=== PATIENT | female | born 1935 | race Caucasian/White ===

== ENCOUNTER → 2020-12-31 | Day surgery (SDC) | payer MEDICARE, BC ==
[~2020-12-31] MED LIST: CELEBREX 200MG200 MG PO; CENTRUM SILVER1 EAC1 PO; HYGROTON TAB 2525 MG PO; K-DUR TAB 20 M20 MEQ PO; NIFEREX 150 MG150 MG PO; TYLENOL EXTRA500 MG PO; TYLENOL PM EX-1 EACH PO; VITAMIN D350000 UNIT PO; XALATAN OP SOL2.5 ML OP; ZOLOFT100 MG PO
== END | disposition home or self-care (01) ==
LOC: OR 06:15
DX: Z12.11 Encounter for screening for malignant neoplasm of colon (principal); K57.30 Diverticulosis of large intestine without perforation or abscess without bleeding; E78.5 Hyperlipidemia, unspecified; I10 Essential (primary) hypertension; M19.90 Unspecified osteoarthritis, unspecified site; E55.9 Vitamin D deficiency, unspecified; J45.909 Unspecified asthma, uncomplicated; Z88.0 Allergy status to penicillin
CPT/HCPCS: J2704; J7120

== ENCOUNTER 2021-09-20 20:38 | Emergency (ER) | payer MEDICARE, BC ==
[2021-09-20 22:06] LABS: HEMOGLOBIN 12.9 gm/dl (12.3-15.3); RED BLOOD COUNT 4.71 M/UL (4.00-5.10); WHITE BLOOD COUNT 6.6 K/UL (4.5-11.0)
[2021-09-20 22:32] LABS: BUN/CREATININE RATIO 26 (0-10)
[2021-09-21] MEDS ORDERED: [UNRECOGNIZED DRUG - REMARK] (00:28)
[2021-09-21] MEDS ORDERED: [UNRECOGNIZED DRUG - REMARK] (00:28)
[2021-09-21] MEDS ORDERED: ECHOCARDIOGRAM (00:28)
[2021-09-21] MEDS ORDERED: ASPIRIN CHEWABL81 MG PO (00:28)
== END 2021-09-21 00:48 | disposition home or self-care (01) ==
LOC: ER1 20:38
PROVIDERS: Student in an Organized Health Care Education/Training Program
DX: G45.9 Transient cerebral ischemic attack, unspecified (principal); I10 Essential (primary) hypertension; Z90.49 Acquired absence of other specified parts of digestive tract; Z90.710 Acquired absence of both cervix and uterus
CPT/HCPCS: 70450; 71045; 80053; 82550; 82553; 83874; 84484; 85025; 93005; 94664; 99285

== ENCOUNTER → 2021-10-13 | Outpatient (CLI) | payer MEDICARE, BC ==
[~2021-10-13] MED LIST changes: +ASPIRIN CHEWABL81 MG PO; +ECHOCARDIOGRAM; +[UNRECOGNIZED DRUG - REMARK]; +[UNRECOGNIZED DRUG - REMARK]
== END ==
LOC: US 09:26 → ECHO 10:00 → MRI 13:00
DX: G45.9 Transient cerebral ischemic attack, unspecified (principal); I10 Essential (primary) hypertension; R90.82 White matter disease, unspecified; I65.23 Occlusion and stenosis of bilateral carotid arteries
CPT/HCPCS: ECHO; 70551; 93306; 93880